=== PATIENT | female | born 2000 | race Caucasian/White ===

== ENCOUNTER → 2025-02-20 | Outpatient (CLI) | payer BC ==
[2025-02-21 13:27] LABS: Chlamydia Trachomatis Urine NOT DETECTED (NOT DETECT); Neisseria Gonorrhoea Urine NOT DETECTED (NOT DETECT)
== END ==
LOC: LAB 16:30 → LAB SHORT 16:30
PROVIDERS: Registered Nurse Community Health
DX: Z34.93 Encounter for supervision of normal pregnancy, unspecified, third trimester (principal)
CPT/HCPCS: 87081; 87150; 87491; 87591

== ENCOUNTER 2025-04-09 16:15 | Emergency (ER) | payer BC, OTHER ==
[~2025-04-09] VITALS: Ht 162.6 cm; Wt 69.0 kg
[2025-04-09] MEDS ORDERED: CEPH500 PO (16:33)
== END 2025-04-09 16:29 | disposition home or self-care (01) ==
LOC: ER 16:15
DX: O87.0 Superficial thrombophlebitis in the puerperium (principal); I80.8 Phlebitis and thrombophlebitis of other sites
CPT/HCPCS: 99282